=== PATIENT | male | born 1955 | race Caucasian/White ===

== ENCOUNTER 2019-01-28 08:18 | Inpatient (IN) ==
[~2019-01-28 08:18] MED LIST: MORPHINE SULFATE 15 MG TABLET.SA PO PRN; ROPIVACAINE HCL/PF 100 MG, EPINEPHrine 0.2 MG, KETOROLAC TROMETHAMINE 30 MG in NORMAL S... IJ PRN; TRANEXAMIC ACID 1,000 MG in NORMAL SALINE 100 ML IV PRN; ceFAZolin SODIUM 1 GM VIAL IV PRN
[2019-01-28] MEDS: RINGER'S SOLUTION,LACTATED 1,000 ML IV PRN ×2 (09:15→10:45)
--- NOTE | 2019-01-28 09:57 | ANES ---
Anesthesia Pre Procedure Eval Vitals/Labs: Last Vital Signs Temp 36.9 C 01/28/19 08:29 Pulse 72 01/28/19 08:29 Resp 18 01/28/19 08:29 BP 147/76 01/28/19 08:29 Pulse Ox 94 01/28/19 08:29 HOME MEDICATIONS hydrochlorothiazide 25 mg tablet 25 mg PO DAILY 01/03/19 [Last Taken Unknown] Allergies/Adverse Reactions: Allergies Allergy/AdvReac Type Severity Reaction Status Date / Time amlodipine AdvReac Intermediate memory loss Verified 01/28/19 08:50 lisinopril AdvReac Unknown Verified 01/28/19 08:50 - Planned Procedure Planned Procedure: TKA Medication List Reviewed:: Yes Allergies Verified: Yes Medical History (Last Reviewed 01/28/19 @ 09:46 by Lm Crawford CRNA) Osteoporosis Cervical myelopathy Onset Date: Unknown Chronic back pain Onset Date: Unknown Colonoscopy refused Onset Date: ~01/03/19 DJD (degenerative joint disease) of knee Onset Date: Unknown Pulmonary embolism Onset Date: ~04/2018 Hyperlipidemia Onset Date: Unknown Hypertension Onset Date: Unknown Seropositive rheumatoid arthritis Onset Date: Unknown Surgical History (Last Updated 01/28/19 @ 09:56 by Lm Crawford CRNA) History of lumbar fusion S/P cervical spinal fusion H/O hernia repair Onset Date: ~1987 H/O oral surgery Onset Date: Unknown teeth removed for dentures History of back surgery Onset Date: ~1993 History of cholecystectomy Onset Date: ~1991 History of throat surgery Onset Date: ~09/2017 states he had a plate placed History of tonsillectomy Onset Date: Unknown History of total knee arthroplasty Onset Date: ~04/2017 [facility], 12/2017 spacer placement d/t possible infection, 07/2018 spacer removed and knee replacement put in Family History (Last Reviewed 01/28/19 @ 08:49 by Fariba Cintron) Mother , age 63 Diabetes Heart disease CVA (cerebral vascular accident) Hypertension Father , age 63 Unknown family medical history Brother , 50's GBS (Guillain [place] syndrome) Sleep apnea Sister , 50's Diabetes Mental health disorder Sister , 60's Anxiety Sister , 70's No problems noted. - Airway/Neck/Teeth Within Normal Limits:: Yes Teeth Condition: intact Denture Type: Full upper, Full lower Mallampatti Score: 2 Thyromental (T-M) distance: > 6 cm Mandibulo Hyoid distance: > 3 cm - Respiratory Respiratory Physical: lungs clear Smoking Status: Former smoker Discussed smoking cessation including day of surgery: No Sleep Apnea currently treated: No Sleep Apnea by current assessment: No - Cardiovascular Tolerate Activity: Fair Heart Sounds: S1 & S2, Regular - Anesthesia Assessment and Plan ASA Class: PS, II
--- NOTE | 2019-01-28 12:16 | ANES ---
Anesthesia Procedure Note Procedure Note: ANESTHESIA PROCEDURE NOTE Date of Procedure: 01/28/2019. Time of procedure: 1000. Performed by: Lm Crawford CRNA Bilingual Secretary: None. Preprocedure diagnosis: Right knee DJD. Post procedure diagnosis: Same. Procedure: Right ultrasound guided adductor canal block for block postoperative analgesia. Indications: The patient is a 63-year-old male, requesting right ultrasound- guided abductor canal block for postoperative analgesia related to right total knee arthroplasty. Findings: See below. Details of the procedure: The tissue over the intended target site was cleansed with ChloraPrepand draped in a sterile fashion. 2 ml Lidocaine 1 % was infiltrated to the skin and subcutaneous tissue at the intended target site. Under sterile technique and ultrasound guidance a 18-gauge Tuohy needle was inserted through the right sartorius muscle to the saphenous nerve just anterior and medial to the superficial femoral artery and vein. 15 mL's of 0.5% bupivacaine was injected after negative aspiration for blood. Needle tip and spread of local anesthetic surrounding the saphenous nerve was observed throughout the injection with real time ultrasound visualization. The tuohy needle was then removed intact. No complications were noted. The images were retained in the Hospital medical database. EBL: Minimal. Fluids: N/A. Specimen: N/A. Post procedure condition: The patient tolerated the procedure well. No complications were noted. Thank you for this consultation. Lm Crawford CRNA
[2019-01-28] MEDS ORDERED: ZOLPIDEM TARTRATE 5 MG TABLET PO PRN (12:27)
[2019-01-28] MEDS ORDERED: oxyCODONE HCL/ACETAMINOPHEN 1 TAB TABLET PO PRN (12:27)
[2019-01-28] MEDS ORDERED: diphenhydrAMINE HCL 50 MG/ML VIAL IV PRN (12:27)
[2019-01-28] MEDS ORDERED: MORPHINE SULFATE 2 MG/ML DISP.SYRIN IV PRN (12:27)
[2019-01-28] MEDS ORDERED: DEXTROSE 5%-LACTATED RINGERS 1,000 ML IV PRN (12:27)
[2019-01-28] MEDS ORDERED: ACETAMINOPHEN 500 MG TABLET PO PRN (12:27)
[2019-01-28] MEDS ORDERED: MAG HYDROX/ALUMINUM HYD/SIMETH 30 ML UDC PO PRN (12:27)
[2019-01-28] MEDS ORDERED: MAGNESIUM HYDROXIDE 30 ML UDC PO PRN (12:27)
[2019-01-28] MEDS ORDERED: ONDANSETRON HCL/PF 2 MG/ML VIAL IV PRN (12:27)
--- NOTE | 2019-01-28 12:27 | OR ---
Operative Report - Dictated Report Narrative: Date: 01/28/2019 Preoperative diagnosis: Right Knee degenerative joint disease. Postoperative diagnosis: Right Knee degenerative joint disease. Procedure: Right Total knee arthroplasty. Surgeon: David Lopez M.D. Edge Banding Machine Offbearer: Yang Valdez PA-C (provided and essential set of skilled, educated hands that assisted with transfer, positioning, prepping, draping, manipulation, retraction, placement of jigs, injection, insertion of implants, irrigation, closure wounds, and dressings all of which could not be performed by the available surgical crew) Anesthesia: Spinal with regional block and local periarticular joint injection. Complications: None Specimens: Bone for disposal. Estimated blood loss: Minimal. Tourniquet time: 92 Minutes at 325 millimeters of mercury. Retained implants: Depuy Attune size 7 right lugged cemented posterior stabilized femoral compo nent. Size 7 fixed-bearing cemented tibial platform. 7 by 8 millimeter posterior stabilized cross-linked tibial insert. 41 millimeter medialized patella button. Indications: Mr. Rand is a 63-year-old gentleman who has had long-standing right knee pain arthrosis as well as rheumatoid arthritis. This patient was followed in my clinic for period of time with significant complaints of right knee pain consistent with arthritic changes. He had failed conservative measures including, but not limited to, activity modification, passage of time, medications, and other conservative measures. Patient wished to proceed with surgical treatment. The risks, benefits, and alternatives were discussed in clinic. The risks of , blood clots, bleeding, infection, nerve/tendon blood vessel/ injury, malposition of components, intraoperative fracture, postoperative limited range of motion, persistent pain, failure of components, and need for additional procedures. Patient wished to proceed consent was obtained after answering all questions. Procedure: After marking the correct extremity on the floor, the patient was taken to the operating room. A timeout was performed. IV antibiotics consisting of Ancef were administered prior to the procedure. A regional followed by spinal anesthetic was induced by anesthesia, per my request, on the operative table with all bony prominences well-padded. Fountain catheter was placed, and a bump was placed under the operative side buttock. SCDs and BHARATI hose were utilized on the nonoperative leg. A well-padded tourniquet was applied to the operative thigh. The operative leg was then pre-scrubbed with alcohol, prepped, and draped in a standard sterile fashion. After exsanguinating the extremity with an Esmarch bandage, the tourniquet was inflated. After marking out the anterior knee for standard incision centered over the patella, the skin was incised and dissected down to the joint retinaculum. The joint retinaculum was marked out as well as the horizontal axis of the patella, and a standard medial parapatellar arthrotomy was then made. The most proximal aspect of the quadriceps tendon and the patella tendon insertion were protected from release. A partial synovectomy was performed as well as a resection of the infrapatellar fat pad. The distal femoral fat pad proximal to the trochlea was also resected using cautery. The soft tissues were elevated off the medial aspect of the proximal tibia using a Guillory elevator ensuring that we did not transect the medial collateral ligament. Upon initial evaluation range of motio n was approximately 5 degrees to 120 degrees of flexion. There were signs of advanced arthrosis in the medial, lateral, and patellofemoral joint spaces. There were large marginal osteophytes which were removed with a rongeur. The knee was hyperflexed and the patella was tucked laterally. Protecting the surrounding soft tissues with Homans, an entry drill was placed down the femoral canal using Whitesides line for guidance into the entry point. The intramedullary femoral alignment luz maria was utilized in order to cut the distal femur in 5 degrees of valgus resecting 10 millimeters of bone. Next the distal femur was sized to a size 7. A posterior referencing guide was utilized to place the distal femoral cutting block in 3 degrees of external rotation. This was pinned into place. The rotation was confirmed both visually and based on anatomic landmarks. The 4 in 1 cutting jig of the appropriate size was utilized in order to make all bony cuts. The angle wing was used to ensure no notching. Retractors were utilized in order to protect surrounding soft tissues. This cut did not result in any excessive notching. We then cut the box centered over the distal femur. This allowed for resection of the anterior and posterior cruciate ligaments. I then turned my attention to the preparation of the tibia. Using an extra medullary tibial alignment luz maria, 4 millimeters of bone was resected off the medial articular surface. This was made perpendicular to the mechanical axis of the joint with the alignment luz maria centered over the ankle mortise. The alignment luz maria was checked and was noted to be parallel to the mechanical axis, centered over the medial one third of the tibial tubercle, paralleling the anterior surface of the tibia. We then turned our attention to the remaining meniscus and soft tissues. These were removed while protecting the surrounding ligaments and soft tissues. The marginal osteophytes off the anterior, posterior, medial, lateral aspects of the femur and tibia were removed. The tibia was sized out to a size 7. Next the tibia was drilled and punched in an externally rotated position. Next the trial femur and a series of tibial inserts were utilized in order to allow for full extension and maximal flexion. It was found that a 8 millimeter insert gave the best range of motion and stability at multiple flexion points as well as at full extension there was less than 2 mm of gapping both medially and laterally. There is minimal anterior translation with the knee at 90 degrees of flexion and no signs of being able to dislocate the knee. The patella was then prepared. The initial thickness was 24 millimeters. This was reamed down to 14 millimeters parallel to the anterior surface of the patella. It was sized out to a size 41 medialized patella button. This was then drilled and trialed. Without any medial restraint the patella tracked appropriately and did not sublux or dislocate. At this point, it was felt these were the appropriate sized implants, and all trials were removed. The standard periarticular joint injection consisting of ropivacaine, Toradol, and epinephrine were injected into the periarticular joint tissues. The bony surfaces were thoroughly irrigated with a pulsatile-suction saline irrigation device. A bone plug from the prior resected anterior chamfer cut was placed into the drill hole at the distal femur. The bony surfaces were then dried in preparation for placement of the implants. The cement was vacuum mixed per the facilities maintenance technician's instructions. The cement was placed on the dry bony surfaces and posterior aspect of the implants. The implants were impacted into place, removing all extruded cement. At this point anesthesia administered tranexamic acid per protocol intravenously. The knee was placed in extension with axial loading with the trial insert while the cement cured. Once the cement cured, all remaining extruded cement was removed. The knee was placed through a range of motion with the trial insert to ensure appropriate range of motion and stability. Final range of motion was approximately 0 to 120 degrees. The knee was again thoroughly irrigated with pulsatile saline lavage. The final polyethylene insert was then impacted into place ensuring no retained soft tissues. The remaining periarticular joint injection was injected. A medium Hemovac drain was placed exiting superior laterally. The knee was then placed over a triangle and the arthrotomy was closed with interrupted #1 Vicryl after thoroughly irrigating the joint. The deep and subcutaneous tissues were closed with interrupted 0 and 3-0 Vicryl respectively. Skin was closed with a running subcutaneous 3-0 Monocryl and donna. Xeroform, 4 x 4's, Sof-Rol, and a full leg Kumar wrap were applied. All sponge, needle, blade, and instrument counts were correct prior to closing the wounds. Postoperative condition: The patient was awoken and transferred to the postanesthesia care unit in stable condition. Plan is to be admitted to the inpatient medical/surgical floor postoperatively for 24 hours of IV antibiotics, physical therapy, occupational therapy, and medical comanagement. Patient will be weightbearing as tolerated with range of motion as tolerated. DVT prophylaxis will be with SCDs, BHARATI hose, and pharmacological anticoagulation. Anticipated hospital stay is approximately 1-3 days.
--- NOTE | 2019-01-28 12:39 | ANES ---
Post Anesthesia Discharge - Transfer of Care Transfer of Care handoff given to nurse: Yes - Discharge from PACU Discharge from PACU when meets criteria: Yes - Alert and comfortable.
[2019-01-28] MEDS: KETOROLAC TROMETHAMINE 15 MG/ML VIAL IV SCH ×2 (13:27→17:42)
[2019-01-28] MEDS: ceFAZolin SODIUM 1 GM in DEXTROSE 5 % IN WATER 100 ML IV SCH ×4 (13:28→21:14)
[2019-01-28] MEDS ORDERED: SENNOSIDES/DOCUSATE SODIUM 1 TAB TABLET PO SCH (21:00)
[2019-01-28] MEDS: MORPHINE SULFATE 15 MG TABLET.SA PO SCH (21:15)
[2019-01-29] MEDS: KETOROLAC TROMETHAMINE 15 MG/ML VIAL IV SCH ×3 (00:58→11:46)
[2019-01-29] MEDS: ceFAZolin SODIUM 1 GM in DEXTROSE 5 % IN WATER 100 ML IV SCH ×2 (02:42)
[2019-01-29 05:39] LABS: Hematocrit 33.7 % (42.0-52.0); Hemoglobin 10.8 gm/dL (13.5-18.0); Mean Cell Volume 79.3 fl (78-100); Mean Corpuscular Hemoglobin 25.4 pg (27-31); Mean Platelet Volume 8.8 fl (8-11.3); Platelet Count 326 K/mm3 (150-450); Red Blood Count 4.25 M/mm3 (4.7-6.0); Red Cell Distribution Width 14.5 % (11.5-14.0); White Blood Count 6.3 K/mm3 (4.0-10.5)
[2019-01-29 05:50] LABS: Anion Gap 12.3 mmol/L (6.8-13.8); BUN/Creatinine Ratio 17.6 (9.0-21.6); Calcium * 8.2 mg/dL (7.9-10.9); Carbon Dioxide 26.3 mmol/L (24-32.6); Estimated Creat Clear 97.2; Potassium 3.6 mmol/L (3.4-4.6)
[2019-01-29] MEDS ORDERED: HYDROCHLOROTHIAZIDE 25 MG TABLET PO SCH (09:15)
[2019-01-29] MEDS: RIVAROXABAN 20 MG TABLET PO SCH ×2 (09:55→10:14)
[2019-01-29] MEDS: MORPHINE SULFATE 15 MG TABLET.SA PO SCH (09:55)
--- NOTE | 2019-01-29 14:54 | DS ---
(1) Status post right knee replacement Problem: Acute (2) Acute blood loss anemia Problem: Acute (3) Multiple pulmonary emboli Problem: Chronic Description of Stay: Mr. Rand was admitted to the floor after undergoing right total knee arthroplasty. Tolerated this well. Was admitted to the floor postoperatively for 24 hours of IV antibiotics, pain control, medical comanagement, and occupational and physical therapy. OT and PT were consulted to assist with activities of daily living and ambulation. Was made weightbearing as tolerated with range of motion as tolerated. Pain was initially controlled with IV regimen. This was transitioned to oral once tolerating a by mouth intake. Was resumed on home diet and medications. Had a Fountain catheter inserted and the operating room which was discontinued on postoperative day 1. A drain was placed intraoperatively into the knee which was discontinued on postoperative day 1. Xeralto SCD and BHARATI hose were utilized for DVT prophylaxis. Vital signs remained stable to the hospital course. Serial labs were obtained which showed a final hemoglobin of 10.6 grams. BMP was reviewed and was stable. Physical examination throughout the hospital course showed an extremity that had sensation that was intact to light touch, palpable pulses, a benign wound, motor intact to the toes, ankle, and knee. Knee range of motion was approximately 5 degrees to 70 degrees. Once an oral pain regimen was tolerated and physical therapy goals were met, it was felt that they were stable for discharge to home. Instructions: Continue with weightbearing as tolerated and range of motion as tolerated. Keep incision clean and dry If you note any drainage or for comfort you can cover with dry gauze and tape. Change every 2-3 days as needed. Continue with physical therapy. Resume home diet. Report any fever over 101.5 Fahrenheit, uncontrolled pain, increased drainage, foul odor of drainage, new or increased calf pain or shortness of breath, or any other significant complaints. Xerlto for 6 weeks postop, patient reports he has a 90 day supply home. Patient has some home SCDs that he will use at night which is used prior with his other knee arthroplasty. He reports he does not tolerate the BHARATI hose in the past due to skin breakdown was sent home with Tubigrip to wear. No driving until instructed otherwise. Follow up in approximately 10-14 days. Procedures Performed: see notes below List Procedures: Right total knee arthroplasty Results and Findings: Lab Pending Results 01/29/19 05:50: WBC 6.3, RBC 4.25 L, Hgb 10.8 L, Hct 33.7 L, MCV 79.3, MCH 25.4 L, MCHC 32.0, RDW 14.5 H, Plt Count 326, MPV 8.8 01/29/19 06:00: Sodium 134, Plasma Sodium 134, Potassium 3.6, Chloride 99, Carbon Dioxide 26.3, Anion Gap 12.3, BUN 16, Creatinine 0.91, Est GFR (Non-Af Amer) 89, BUN/Creatinine Ratio 17.6, Random Glucose 116 H, Calcium 8.2 Discharge Location: Home Disposition: Home self-care Condition: Good Discharge Activity: Activity as tolerated, Weight bearing, Other - with walker Discharge Diet: General/regular food Referrals: Annabelle Lepe MD [Primary Care Provider] - Additional Patient Instructions (free text): [facility] at discharge, please call and fax them discharge orderw, fax #[phone] homemaker services. Physical Therapy at [facility] at [place], [place], on January 31 at 1:00pm. Please fax PT Order to fax # [phone] . Follow-up appointment scheduled in the office with Dr. Lopez on 02/19/19 at 10:30am. Prescriptions (Any new or edited meds): Morphine Sulfate [Ms Contin] 15 mg PO Q12H #14 tablet.sa oxyCODONE HCL/ACETAMINOPHEN [Percocet 5 MG/325 MG] 2 tab PO Q4H PRN #42 tab PRN Reason: Moderate Pain (Pain Scale 4-6) Complete Home Medications List: Complete Home Medication List: hydrochlorothiazide 25 mg tablet 25 mg PO DAILY 01/03/19 Acetaminophen [Tylenol] 1,000 mg PO Q6H PRN tab 01/29/19 Morphine Sulfate [Ms Contin] 15 mg PO Q12H #14 tablet.sa 01/29/19 Rivaroxaban [Xarelto] 20 mg PO DAILY tab 01/29/19 oxyCODONE HCL/ACETAMINOPHEN [Percocet 5 MG/325 MG] 2 tab PO Q4H PRN #42 tab 01/29/19 Amb Orders for Discharge: PT Evaluation and Treatment* Facility: [facility], Location: Rehabilitation Services
[2019-01-29 15:57] VITALS: BP 150/53
== END 2019-01-29 15:50 | disposition home or self-care (01) | DRG 470 ==
LOC: MS 08:18 → EDSTATUS 11:30
PROVIDERS: ADMIT Orthopaedic Surgery; ATTEND Orthopaedic Surgery
CPT/HCPCS: 36415; 73560; 80048; 85027; 97110; 97116; 97161; 97165; 97535